=== PATIENT | male | born 1955 | race Caucasian/White ===

== ENCOUNTER 2017-02-13 11:02 | Day surgery (SDC) | payer BC ==
[2017-02-07 12:15] VITALS: BMI 43.0
[~2017-02-13 11:02] MED LIST: BENZOCAINE SPRAY 1 SPRAY CAN TOPICAL PRN
[2017-02-13] MEDS ORDERED: SODIUM CHLORIDE 0.9% 500 ML IV ONE (11:15)
[2017-02-13 11:31] VITALS: RESP 16; TEMP 97.8
[2017-02-13] MEDS ORDERED: fentaNYL (PF) 50 MCG/ML 2 ML AMP ONE (12:16)
[2017-02-13] MEDS ORDERED: MIDAZOLAM 2 MG/2 ML VIAL ONE (12:16)
[2017-02-13] MEDS: BENZOCAINE SPRAY 1 SPRAY CAN MUCOUS MEM ONE ×2 (12:28→12:31)
[2017-02-13] MEDS ORDERED: MIDAZOLAM 2 MG/2 ML VIAL IVP ONE (12:32)
[2017-02-13] MEDS ORDERED: fentaNYL (PF) 50 MCG/ML 2 ML AMP IVP ONE (12:32)
[2017-02-13] MEDS: MIDAZOLAM 2 MG/2 ML VIAL IVP ONE ×2 (12:36→12:39)
--- NOTE | 2017-02-13 13:29 | ECHOT ---
Mr. Jordan is a 61-year-old gentleman who was advised transesophageal echocardiogram to assess the bicuspid aortic valve and aortic regurgitation. Patient has a remote history of possible endocarditis. PROCEDURE: The patient was given intravenous sedation with Versed and fentanyl and transesophageal echocardiogram was performed without any complications. Left ventricular chamber is normal in size with normal left ventricular end- diastolic and end-systolic diameter and normal left ventricular systolic function. Aortic valve is thickened with its bicuspid but normal opening is noted. There is evidence of moderate degree of aortic regurgitation. Aortic regurgitation is very eccentric. Mitral valve morphology is normal. Mild mitral regurgitation is noted. Left atrium is mildly enlarged. Left atrial appendage is clear. There is no evidence of any thrombus. Right ventricle, right atrial chamber are normal in size. Intra-atrial septum is intact. There is no evidence of any PFO by saline contrast study. Descending thoracic aorta shows mild atherosclerotic plaque. FINAL IMPRESSION: 1. This study shows evidence of bicuspid aortic valve which is normally opening. The valve is moderately thickened and there is a moderate degree of aortic regurgitation. 2. Ascending aorta and sinotubular junction at the level of sinus of Valsalva, aorta measures about 4.2 cm. 3. There is no evidence of aortic stenosis. 4. Left ventricular end-diastolic and systolic diameters are normal and normal left ventricular systolic function is noted. Intra-atrial septum is intact. There is mild atherosclerotic plaque noted in descending thoracic aorta. MTDD
[2017-02-13 14:21] VITALS: BP 114/62; PULSE 98
--- NOTE | 2017-02-16 07:14 | CDI ---
Documentation Clarification OP Dear. Dr. Rodriguez, Please provide clarification regarding the type of sedation provided. The [facility] report just mentions that the patient was given IV sedation with Fentanyl and Versed. Please clarify if Moderate/Conscious sedation or GA/Unconscious sedation was provided. PLEASE RESPOND TO THIS QUERY BY DICTATING AN ADDENDUM TO YOUR [facility] REPORT. Thank you for your assistance, NICOLA Raygoza If you have any questions, please contact Sugar House Supervisor, Ramandeep Carreno at [facility]
--- NOTE | 2017-02-20 14:28 | CDI ---
Documentation Clarification OP Dear. Dr. Rodriguez, Please provide clarification regarding the type of sedation provided. The [facility] report just mentions that the patient was given IV sedation with Fentanyl and Versed. Please clarify if Moderate/Conscious sedation or GA/Unconscious sedation was provided. PLEASE RESPOND TO THIS QUERY BY DICTATING AN ADDENDUM TO YOUR [facility] REPORT. Thank you for your assistance, NICOLA Raygoza If you have any questions, please contact Fire Dispatcher, Ramandeep Carreno at [facility]
--- NOTE | 2017-03-09 05:50 | CDI ---
Documentation Clarification OP Dear. Dr. Rodriguez, Please provide clarification regarding the type of sedation provided. The [facility] report states that the patient was given IV sedation with Fentanyl and Versed. Please clarify if Moderate/Conscious sedation or GA/Unconscious sedation was provided. PLEASE RESPOND TO THIS QUERY BY DICTATING AN ADDENDUM TO YOUR [facility] REPORT. Thank you for your assistance, NICOLA Raygoza If you have any questions, please contact Jamb Cutter, Ramandeep Carreno at [facility]
== END 2017-02-13 14:30 | disposition home or self-care (01) ==
LOC: CATHCVL 11:02
PROVIDERS: ATTEND Internal Medicine Cardiovascular Disease
DX: I35.1 Nonrheumatic aortic (valve) insufficiency (principal); Q23.1 Congenital insufficiency of aortic valve; I70.0 Atherosclerosis of aorta; I48.1 Persistent atrial fibrillation; Z79.01 Long term (current) use of anticoagulants; E78.00 Pure hypercholesterolemia, unspecified; I10 Essential (primary) hypertension; E78.5 Hyperlipidemia, unspecified; Z79.818 Long term (current) use of other agents affecting estrogen receptors and estrogen levels; Z79.899 Other long term (current) drug therapy
CPT/HCPCS: 93312; 93320; 93325; 99152; J2250; J3010

== ENCOUNTER → 2019-11-28 | Outpatient (CLI) | payer MEDICARE, BC ==
[2019-11-28 12:17] LABS: African American GFR (CKD) >90 (>60 ml/min/1.73 sqM); Blood Urea Nitrogen 14 mg/dL (9-20); Non-African American GFR(CKD) >90 (>60 ml/min/1.73 sqM)
--- NOTE | 2019-11-28 13:19 | CT ---
EXAMINATION TYPE: CT angio thor/abd pel aorta DATE OF EXAM: 11/28/2019 COMPARISON: HISTORY: ascending aortic aneurysm CT DLP: 2905.6 mGycm. Automated Exposure Control for Dose Reduction was Utilized. CONTRAST: CT scan of the thorax, abdomen and pelvis is performed without and with IV Contrast, patient injected with 100 mL of Isovue 370. FINDINGS: LUNGS: The lungs are grossly clear, there is no concerning parenchymal mass or nodule identified. T here is no pleural effusion or pneumothorax seen. The tracheobronchial tree is patent. MEDIASTINUM: There are no greater than 1 cm hilar or mediastinal lymph nodes. No pericardial effusi on is seen. Calcification of the aortic valve noted. OTHER: No additional significant abnormality is seen. LIVER/GB: Diffuse low-attenuation throughout the liver suggestive of fatty infiltration. There is a h ypervascular lesion which is indeterminate involving the posterior segment of the right lobe the live r measuring 1.5 cm. This could be evaluated with ultrasound. Additional linear hyperdensity is seen i n the anterior margin of the liver right lobe.. PANCREAS: No significant abnormality is seen. SPLEEN: No significant abnormality is seen. ADRENALS: No significant abnormality is seen. KIDNEYS: Mild atrophic changes of the left kidney.. BOWEL: No significant abnormality is seen. Small hiatal hernia noted. LYMPH NODES: No greater than 1cm abdominal or pelvic lymph nodes are appreciated. OSSEOUS STRUCTURES: Hypertrophic and degenerative changes are noted. Postoperative change involving t he left hip noted. Arthropathy of the right hip. OTHER: No significant additional abnormality is seen. AORTA: Ascending aorta measures approximately 4.5 cm in greatest dimension compatible with mild aneurysmal d ilation. Descending aorta and abdominal aorta are normal caliber with no evidence of aneurysm. Mild a therosclerotic changes are seen. IMPRESSION: 1. There is aneurysmal dilation ascending aorta measuring 4.5 cm. Descending and abdominal aorta zahraa sure within normal limits. 2. Hepatic steatosis with hepatomegaly. Hyperdense enhancing lesion posterior segment right lobe the liver is indeterminate and could be correlated with ultrasound.
== END | disposition home or self-care (01) ==
LOC: RADCTMAIN 11:11
PROVIDERS: ATTEND Internal Medicine Interventional Cardiology
DX: Q23.1 Congenital insufficiency of aortic valve (principal); I71.4 Abdominal aortic aneurysm, without rupture; K76.0 Fatty (change of) liver, not elsewhere classified; R16.0 Hepatomegaly, not elsewhere classified; I71.2 Thoracic aortic aneurysm, without rupture
CPT/HCPCS: 82565; 84520; 71275; 36415; 74174; Q9967

== ENCOUNTER → 2021-02-22 | Outpatient (CLI) | payer MEDICARE, BC ==
[2021-02-22 16:47] LABS: African American GFR (CKD) >90 (>60 ml/min/1.73 sqM); Blood Urea Nitrogen 12 mg/dL (9-20); Non-African American GFR(CKD) >90 (>60 ml/min/1.73 sqM)
--- NOTE | 2021-02-22 23:08 | CT ---
EXAMINATION TYPE: CT angio chest DATE OF EXAM: 02/22/2021 6:02 PM COMPARISON: CTA chest and abdomen 11/28/2019 HISTORY: Thoracic AA w/out rupture, faulty aortic bicuspid valve CT DLP: 1520.80 mGycm Automated exposure control for dose reduction was used. CONTRAST: CTA scan of the thorax is performed with IV Contrast, patient injected with 100 mL of Isovue 370, tho racic aortic aneurysm protocol. Three-dimensional images [facility] FINDINGS: LUNGS: The lungs are grossly clear, there is no concerning parenchymal mass or nodule identified. T here is no pleural effusion or pneumothorax seen. The tracheobronchial tree is patent. MEDIASTINUM: There is unchanged ascending thoracic aortic ectasia measuring up to 4.3 cm. Descending thoracic aorta normal in caliber. No evidence of thoracic aortic dissection. Aortic valvular prosthes is. Cardiac size normal. No pericardial effusion. No axillary, mediastinal, or hilar lymphadenopathy. OTHER: Adrenal glands normal. There is diffuse bridging osteophytic formation of the thoracic spine. IMPRESSION: 1. ASCENDING THORACIC AORTIC ECTASIA MEASURES 4.3 CM, UNCHANGED FROM 11/28/2019 CTA COMPARISON. 2. DIFFUSE IDIOPATHIC SKELETAL HYPEROSTOSIS (DISH).
== END | disposition home or self-care (01) ==
LOC: RADCTMAIN 16:00
PROVIDERS: ATTEND Internal Medicine Interventional Cardiology
DX: I71.2 Thoracic aortic aneurysm, without rupture (principal); M48.10 Ankylosing hyperostosis [Forestier], site unspecified
CPT/HCPCS: 82565; 84520; 71275; 36415; Q9967

== ENCOUNTER 2021-04-21 10:25 | Day surgery (SDC) | payer MEDICARE, BC ==
[2021-04-19 12:06] VITALS: BMI 40.1
[2021-04-21] MEDS ORDERED: SODIUM CHLORIDE 0.9% 500 ML 500 ML IV ONE (11:00)
[2021-04-21 11:11] VITALS: TEMP 98.5
[2021-04-21 11:12] LABS: Glucose,Whole Blood 134 mg/dL (75-99)
[2021-04-21] MEDS ORDERED: fentaNYL (PF) 50 MCG/ML 2 ML AMP ONE (11:16)
[2021-04-21] MEDS ORDERED: BENZOCAINE SPRAY 1 CAN TOPICAL ONE (11:34)
[2021-04-21] MEDS ORDERED: fentaNYL (PF) 50 MCG/ML 2 ML AMP IV ONE (11:34)
[2021-04-21] MEDS ORDERED: MIDAZOLAM 2 MG/2 ML VIAL IV ONE (11:34)
[2021-04-21 11:45] LABS: Prothrombin Time 38.3 sec (9.0-12.0)
[2021-04-21] MEDS ORDERED: SODIUM CHLORIDE 0.9% 1,000 ML IV SCH (12:00)
--- NOTE | 2021-04-21 12:02 | P.TEE ---
Indications for Procedure(s): To assess left atrial thrombus Date of Procedure: 04/21/21 Preoperative Diagnosis: History of CVA, left atrial thrombus and bicuspid aortic valve Postoperative Diagnosis: Bicuspid aortic valve with mild stenosis and regurgitation, mildly dilated aortic root and no clot noted in the left atrial appendage Procedure(s) Performed: [facility] Description of Procedure(s): INDICATION: Assessment of left atrial thrombus CONSENT: Informed verbal consent is obtained from the patient PROCEDURE: Patient was brought to the lab in a fasting state. He was prepped and draped in the usual fashion. The throat was sprayed with Hurricaine. Patient was given 2 mg of Versed and 50 g of fentanyl for sedation. A lubricated Omni probe was introduced into the oropharynx and was advanced into the esophagus without any difficulty. Multiple views were obtained. Color, pulsed and continuous with Doppler studies were performed. Saline contrast bubble injection was also done. Patient tolerated the procedure well. No immediate complications FINDINGS: The aortic valve is bicuspid . It seemed to be showing opening excursion of 1.5 size to mild stenosis. There is eccentric mild regurgitation. The aortic root is dilated and measured oh centimeters. The mitral valve showed mild central regurgitation him to be about 1+. The left atrial appendage appeared to be free of any clot. The pulmonary venous flow appeared to be normal. The intra-atrial septum appeared to be intact without any spontaneous shunt. Saline contrast bubble injection did not reveal any crossing of the bubbles across the interatrial septum. Left ventricle function appeared to be preserved. Aorta did not reveal significant plaque. IMPRESSION: #1. No clot noted in the left atrial appendage.#2. Bicuspid aortic valve with mild stenosis and regurgitation#3. Mild mitral regurgitation #4. No PFO #5. No Sigmund plaque in the aorta. #6. Preserved LV function PLAN: Continue current medical therapy
[2021-04-21 14:55] VITALS: RESP 16
[2021-04-21 14:57] VITALS: BP 123/62; PULSE 74
== END 2021-04-21 13:29 | disposition home or self-care (01) ==
LOC: CATHCVL 10:25
PROVIDERS: ATTEND Internal Medicine Cardiovascular Disease
DX: I51.3 Intracardiac thrombosis, not elsewhere classified (principal); I35.1 Nonrheumatic aortic (valve) insufficiency; Q23.1 Congenital insufficiency of aortic valve; Z86.73 Personal history of transient ischemic attack (TIA), and cerebral infarction without residual deficits; Z20.822 Contact with and (suspected) exposure to COVID-19; I48.19 Other persistent atrial fibrillation; E78.00 Pure hypercholesterolemia, unspecified; I10 Essential (primary) hypertension; E66.9 Obesity, unspecified; Z68.41 Body mass index [BMI] 40.0-44.9, adult; F10.20 Alcohol dependence, uncomplicated; Z79.01 Long term (current) use of anticoagulants; Z79.84 Long term (current) use of oral hypoglycemic drugs; Z79.899 Other long term (current) drug therapy
CPT/HCPCS: 93312; 93320; 93325; 85610; 87635; J2250; J3010